=== PATIENT | female | born 1945 | race Two or more races ===

== ENCOUNTER 2023-07-06 09:26 | Emergency (ER) | payer OTHER ==
[~2023-07-06] VITALS: Ht 152.4 cm; Wt 45.8 kg
[2023-07-06] MEDS ORDERED: IBUP-1957 PO (09:55)
[2023-07-06 17:00] VITALS: BP 124/72; TEMP 98.2; O2SAT 99
[2023-07-06] MEDS ORDERED: INSU100I30 SQ (17:56)
[2023-07-06] MEDS ORDERED: METF-442 PO (17:56)
[2023-07-06] MEDS ORDERED: GLIM4TAB37 PO (17:56)
[2023-07-06] MEDS ORDERED: CARV6.25 PO (17:56)
== END 2023-07-06 20:52 ==
LOC: ER 09:26
DX: M54.9 Dorsalgia, unspecified (principal); E11.9 Type 2 diabetes mellitus without complications; Z20.822 Contact with and (suspected) exposure to COVID-19; Z79.899 Other long term (current) drug therapy